=== PATIENT | male | born 1990 | race Caucasian/White ===

== ENCOUNTER 2017-03-11 20:45 | Emergency (ER) | payer SELFPAY ==
[~2017-03-11] VITALS: Ht 185.4 cm; Wt 72.6 kg
[~2017-03-11 20:45] MED LIST: ANAPROX DS550 MG PO; ANTIBIOTIC O500 U/GM TP; AUGMENTIN 875 M1 TAB PO; HYDROCODONE BIT1 T11 PO; KEFLEX500 MG PO; MOTRIN800 MG PO; NAPROSYN500 MG PO; VICODIN 5/500 505 MG PO; VICODIN 500 MG-1 TAB PO
[2017-03-11] MEDS ORDERED: ANAPROX DS550 MG PO (21:41)
== END 2017-03-11 21:48 | disposition home or self-care (01) ==
LOC: ED 20:45
DX: S62.326A Displaced fracture of shaft of fifth metacarpal bone, right hand, initial encounter for closed fracture (principal); W22.8XXA Striking against or struck by other objects, initial encounter; Y93.89 Activity, other specified; Y92.9 Unspecified place or not applicable; Y99.9 Unspecified external cause status

== ENCOUNTER 2017-03-23 21:35 | Emergency (ER) | payer SELFPAY ==
[~2017-03-23] VITALS: Ht 185.4 cm; Wt 72.6 kg
== END 2017-03-23 23:01 | disposition home or self-care (01) ==
LOC: ED 21:35
DX: S41.111A Laceration without foreign body of right upper arm, initial encounter (principal); W23.0XXA Caught, crushed, jammed, or pinched between moving objects, initial encounter; Y93.89 Activity, other specified; Y92.9 Unspecified place or not applicable; Y99.9 Unspecified external cause status